=== PATIENT | male | born 1990 | race Caucasian/White ===

== ENCOUNTER 2020-01-03 23:24 | Emergency (ER) | payer BC, OTHER ==
--- NOTE | 2020-01-04 00:16 | EDM.PDOC ---
ED HPI GENERAL MEDICAL PROBLEM - General Chief Complaint: Upper Extremity Injury/Pain Stated Complaint: elbow injury Time Seen by Provider: 01/03/20 23:27 Source of Information: Reports: Patient History Limitations: Reports: No Limitations - History of Present Illness INITIAL COMMENTS - FREE TEXT/NARRATIVE: Patient was trying to water the dirt at the track and fell onto the ground from the vehicle and onto right side. Has right elbow pain. Denies other injuries. Would like to get elbow checked. Fall was about 8 feet from the water truck and he landed on the dirt. No LOC. Right Elbow Pain Score (Numeric/FACES): 7 - Related Data Allergies Allergy/AdvReac Type Severity Reaction Status Date / Time No Known Allergies Allergy Verified 01/03/20 23:25 Home Meds: Home Meds Ibuprofen [Advil] 2 cap PO Q6HR 01/03/20 [History] Past Medical History - Past Health History Medical/Surgical History: Denies Medical/Surgical History Social & Family History - Tobacco Use Smoking Status *Q: Never Smoker Second Hand Smoke Exposure: No - Caffeine Use Caffeine Use: Reports: Soda - Recreational Drug Use Recreational Drug Use: No Review of Systems - Review of Systems Review Of Systems: See Below Eyes: Reports: No Symptoms Ears: Reports: No Symptoms Nose: Reports: No Symptoms Mouth/Throat: Reports: Loose Teeth Respiratory: Reports: No Symptoms Cardiovascular: Reports: Other (mild rib discomfort right side) GI/Abdominal: Reports: No Symptoms. Denies: Abdominal Pain Genitourinary: Reports: No Symptoms Musculoskeletal: Reports: Arm Pain (right elbow), Joint Swelling (right elbow). Denies: Neck Pain, Shoulder Pain, Back Pain, Hand Pain, Leg Pain, Foot Pain Skin: Reports: Other (abrasion right elbow) Neurological: Reports: No Symptoms Psychiatric: Reports: No Symptoms ED EXAM, GENERAL - Physical Exam Exam: See Below Exam Limited By: No Limitations General Appearance: Alert, WD/WN, No Apparent Distress Eye Exam: Bilateral Eye: EOMI, PERRL Ears: Normal External Exam, Hearing Grossly Normal Nose: No: Nasal Deformity, Nasal Swelling, Nasal Drainage Throat/Mouth: Normal Lips, Normal Voice, No Airway Compromise Head: Atraumatic, Normocephalic Neck: Supple, Non-Tender, Full Range of Motion Respiratory/Chest: No Respiratory Distress, Lungs Clear, Normal Breath Sounds, No Accessory Muscle Use, Chest Non-Tender Cardiovascular: Normal Peripheral Pulses, Regular Rate, Rhythm, No Edema, No Murmur GI/Abdominal: Normal Bowel Sounds, Soft, Non-Tender, No Distention (Male) Exam: Deferred Rectal (Males) Exam: Deferred Back Exam: Normal Inspection. No: CVA Tenderness (L), CVA Tenderness (R), Muscle Spasm, Paraspinal Tenderness, Vertebral Tenderness Extremities: Normal Inspection (left arm/legs), Normal Capillary Refill, Limited Range of Motion (right elbow). No: Mottled, Pallor, Redness Neurological: Alert, Oriented, CN II-XII Intact, Normal Cognition, Normal Gait Psychiatric: Normal Affect, Normal Mood Skin Exam: Warm, Dry, Other (abrasion right elbow) ED TRAUMA EXTREMITY PROCEDURES - Splinting Right Upper Extremity Splint Site: right elbow Pre-Procedure NV Status: Normal Post-Procedure NV Status: Normal Splint Material: Fiberglass Splint Design: Posterior Applied & Form Fitted By: Provider Provider Post-Splint Application NV Check: NV Status Normal, Good Position Complications: No Course - Vital Signs Last Recorded V/S: Last Vital Signs Temp 37.3 C 01/03/20 23:38 Pulse 86 01/03/20 23:38 Resp 16 01/03/20 23:38 BP 126/76 01/03/20 23:38 Pulse Ox 98 01/03/20 23:38 - Orders/Labs/Meds Orders: Active Orders 24 hr Category Date Time Status Elbow 2V Rt [CR] Stat Exams 01/03/20 23:28 Taken - Re-Assessments/Exams Free Text/Narrative Re-Assessment/Exam: 01/04/20 00:24 Xray confirmed Radial Head fracture. Splinted. Care of splint and follow up plan discussed with patient. He declined additional pain medication. Will follow up Sunday at [facility] walk-in in [place]. Departure - Departure Time of Disposition: 00:10 Disposition: Home, Self-Care 01 Condition: Good Clinical Impression: Right radial head fracture Qualifiers: Encounter type: initial encounter Fracture type: closed Fracture alignment: nondisplaced Qualified Code(s): S52.124A - Nondisplaced fracture of head of right radius, initial encounter for closed fracture - Discharge Information *PRESCRIPTION DRUG MONITORING PROGRAM REVIEWED*: Not Applicable *COPY OF PRESCRIPTION DRUG MONITORING REPORT IN PATIENT MELVIN: Not Applicable Instructions: Cast or Splint Care, Adult, [id number] Forms: ED Department Discharge Additional Instructions: Tylenol or Ibuprofen for pain as needed. Follow up Sunday with Ortho walk-in in [facility] will have access to our films and that will make things a bit easier. If you decide to go to [facility] you will have to contact us to send the films to [facility]. Follow up otherwise as needed if you have any problems. Sepsis Event Note - Evaluation Sepsis Screening Result: No Definite Risk - Focused Exam Vital Signs: Vital Signs Temp Pulse Resp BP Pulse Ox 01/03/20 23:38 37.3 C 86 16 126/76 98 Date Exam was Performed: 01/04/20 Time Exam was Performed: 00:17 - My Orders Last 24 Hours: My Active Orders 01/03/20 23:28 Elbow 2V Rt [CR] Stat - Assessment/Plan Last 24 Hours: My Active Orders 01/03/20 23:28 Elbow 2V Rt [CR] Stat
== END 2020-01-04 00:21 | disposition home or self-care (01) ==
LOC: LL.ED 23:24
DX: S52.124A Nondisplaced fracture of head of right radius, initial encounter for closed fracture (principal); V87.8XXA Person injured in other specified noncollision transport accidents involving motor vehicle (traffic), initial encounter
CPT/HCPCS: 29105; 73070-RT; 99283-25